=== PATIENT | female | born 1940 | race Caucasian/White ===

== ENCOUNTER 2018-04-10 06:00 | Day surgery (SDC) | payer MEDICARE, BC ==
[2018-04-09 11:29] VITALS: BMI 31.3
[2018-04-10] MEDS ORDERED: PROPOFOL 40 ML ONE (07:02)
[2018-04-10] MEDS ORDERED: Lidocaine 1% PF 5 ML VIAL ONE ×2 (08:05→14:40)
--- NOTE | 2018-04-10 11:29 | DIS ---
HISTORY: She was seen in the outpatient setting today to undergo a transesophageal echocardiogram fo r evaluation of the mitral valve in a patient who has what appeared to be mild to moderate mitral alessandro ve stenosis and could have been more severe and a transesophageal echocardiogram was advised prior to undergoing general anesthesia. She has had some problems with lower extremity edema, but has a norm al ejection fraction. She was advised to have the transesophageal echocardiogram performed in order to visualize more the mitral valve. Her other diagnoses include hypertension, lower extremity edema. She is status post bilateral greate r saphenous vein closure or ablation. She has had a hysterectomy. She has had some hypertension. S he has type 2 diabetes and mixed hyperlipidemia. DISCHARGE DIAGNOSES: Mild to moderate mitral valve stenosis which is noncritical. She should be a r easonable candidate to proceed with her surgery. She has type 2 diabetes and mixed hyperlipidemia. DISCHARGE MEDICATIONS: Same as her admission medications. Her discharge medications include oxybuty ignacio, metformin 500 mg 1 b.i.d., propranolol 40 mg 1 daily, vitamin E 400 mg 1 daily, aspirin 81 mg a day, vitamin D3 5000 units 1 daily, Amrix 15 mg extended release capsules 1 a day, pravastatin 20 mg a day, Zetia 10 mg a day, omeprazole 40 mg 1 a day, olmesartan 40 mg/hydrochlorothiazide 12.5 mg 1 da angella, clonazepam 0.5 mg tablets as needed, Lasix 20 mg 1 tablet as needed for lower extremity edema, a mlodipine 5 mg once a day, clonidine 0.1 mg daily. FOLLOWUP: Her followup will be with me in the office in about a month. PROCEDURES IN THE HOSPITAL: Included a transesophageal echocardiogram. HOSPITAL COURSE: As above, the patient presented for a transesophageal echocardiogram as noted above for the above indications. She did well for the procedure and overall impression was that she has m ild to moderate mitral valve stenosis. This is not critical. She should be a reasonable candidate t o proceed with her surgery upcoming without any significant contraindications at this time. In the f uture, she may need to undergo a mitral valvuloplasty, at this time does not appear to be an issue. I will discuss her case with further cardiothoracic surgeons or director global development that woul d perform mitral valvuloplasty. When she is fully awake and stable, she will be able to be discharge d home.
[2018-04-10] MEDS ORDERED: Glycopyrrolate 0.2 MG/ML 5 ML SYRINGE ONE (14:40)
[2018-04-10] MEDS ORDERED: PHENYLEPHRINE-NS 100 MCG/ML 10 ML SYRINGE ONE (14:40)
[2018-04-10] MEDS ORDERED: PROPOFOL 200 MG/20 ML VIAL ONE (14:40)
[2018-04-10] MEDS ORDERED: ePHEDrine/0.9% NaCl/PF SYRINGE 50 mg/10 ml ONE (14:40)
--- NOTE | 2018-04-10 15:04 | ECHO ---
TRANSESOPHAGEAL ECHOCARDIOGRAM: Date: 04/10/18 This is a 77-year-old female with a history of mitral valve stenosis of which was felt previously to be nonrheumatic. She is planned to undergo surgical procedures. She has had some lower extremity whitley a. Ejection fraction has remained normal. Transesophageal echocardiogram was performed to rule out ev idence of severe mitral valve stenosis. By transthoracic echocardiogram, it appeared to be mild to mo derate, but the posterior leaflet was not very well visualized. She was taken to recovery area where she underwent the procedure today. After giving after giving short-acting propofol for anesthesia, th e transesophageal probe was easily passed down the distal esophagus. IMPRESSION: 1. Mild to moderate mitral valve stenosis. Mitral valve area of 1.8 cm2. 2. Posterior mitral valve leaflet in fixed position, but appears to be immobile. 3. Trace aortic valve regurgitation, appears to be trileaflet with no evidence of stenosis on aortic valve. 4. Mild tricuspid valve regurgitation. 5. Mild to moderate mitral valve regurgitation. 6. No evidence of left atrial or left atrial appendage thrombus. 7. Ejection fraction 55-60%. 8. Moderate to severe left atrial dilatation with a left atrial dimension of 5.0-5.4 cm. 9. 3D images were obtained. There was a valve area by planimetry, as well as by pressure halftime, c alculated both ways to be about 1.8 cm2, compatible with mild to moderate mitral valve stenosis. There were no difficulties or complications were encountered.
== END 2018-04-10 10:31 | disposition home or self-care (01) ==
LOC: CCL 06:00
PROVIDERS: ATTEND Internal Medicine Cardiovascular Disease
PROC: B246ZZ4 Ultrasonography of Right and Left Heart, Transesophageal (ICD-10-PCS; principal; 2018-04-10)
DX: I34.2 Nonrheumatic mitral (valve) stenosis (principal); I10 Essential (primary) hypertension; E89.0 Postprocedural hypothyroidism; E78.2 Mixed hyperlipidemia; E11.9 Type 2 diabetes mellitus without complications; Z87.891 Personal history of nicotine dependence; Z79.84 Long term (current) use of oral hypoglycemic drugs; Z79.82 Long term (current) use of aspirin; Z79.899 Other long term (current) drug therapy
CPT/HCPCS: 93312; J2001; J2704

== ENCOUNTER 2018-05-25 10:13 | Outpatient (CLI) | payer MEDICARE, BC ==
--- NOTE | 2018-05-25 13:20 | MRI ---
MRI OF THE LUMBAR SPINE WITHOUT CONTRAST: Date: 05/25/18 COMPARISON: 01/17/17. HISTORY: Lumbar stenosis with claudication, back pain irradiating down bilateral lower extremities/bilateral l ower extremity radiculopathy. TECHNIQUE: Multiplanar, multisequence MR imaging of the lumbar spine obtained without contrast. FINDINGS: There is prominent levoscoliosis of the lumbar spine centered at the L3 level. There is no anterolisthesis or retrolisthesis noted within the lumbar spine. Assuming five lumbar-typ e vertebral bodies, the conus medullaris terminates at the T12-L1 level. T12-L1: There is disc space narrowing, disc desiccation, anterior osteophyte formation, and disc bulge. There is a new left paracentral/left foraminal disc protrusion. There is bilateral facet hypertrophy. Ther e is new moderate left lateral recess stenosis. There is mild left neural foraminal stenosis. L1-2: There is a new central/left paracentral disc herniation with mild superior migration and new signific ant left lateral recess stenosis. There is mild left neural foraminal stenosis. There is mild right n eural foraminal stenosis with bilateral facet hypertrophy present. L2-3: Prominent bilateral facet hypertrophy, right greater than left. There is disc space narrowing, disc d esiccation, and disc bulge present. Stable moderate right lateral recess stenosis. Severe right and m oderate left neural foraminal stenosis noted. L3-4: Prominent bilateral facet hypertrophy, right greater than left. There is disc space narrowing, disc d esiccation, and disc bulge with mild central canal stenosis, moderate right lateral recess stenosis, and moderate bilateral neural foraminal stenosis. L4-5: There is disc space narrowing, disc desiccation, and disc bulge. There is severe facet hypertrophy, l eft greater than right. There is mild central canal stenosis with moderate left lateral recess stenos is. Mild right and severe left neural foraminal stenosis. L5-S1: Disc space narrowing and disc desiccation. Bilateral facet hypertrophy. Mild bilateral neural foramin al stenosis, left greater than right. No significant central canal stenosis. Review of the retroperitoneal structures demonstrates two complex T2 hyperintense lesions emanating f rom the mid pole/lower pole of the left kidney measuring up to 1.6 cm. These lesions do not meet crit eria for simple cysts and may represent complex cysts or solid masses. CT of the abdomen with and wit hout contrast using a renal mass protocol is thus advised. IMPRESSION: 1. 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 2. Two complex lesions emanate from the left kidney, for which renal mass protocol CT examination is advised. CODE T. POS: [facility]
== END 2018-05-25 10:14 | disposition home or self-care (01) ==
LOC: TBSIIMAG 10:13
PROVIDERS: ATTEND Neurological Surgery
DX: M48.062 Spinal stenosis, lumbar region with neurogenic claudication (principal); M47.896 Other spondylosis, lumbar region; N28.9 Disorder of kidney and ureter, unspecified
CPT/HCPCS: 72148

== ENCOUNTER 2018-09-10 19:57 | Emergency (ER) | payer MEDICARE, BC ==
[2018-09-10] MEDS ORDERED: Ondansetron ODT 4 MG TAB ONE (20:12)
--- NOTE | 2018-09-10 22:23 | RAD ---
TWO VIEWS OF THE CHEST: 09/10/18 COMPARISON: None. HISTORY: Choking episode at home. FINDINGS: There is mild elevation of the left hemidiaphragm. There is atherosclerotic calcifications of the abd ominal aorta. There is mild increased linear interstitial density. There is no pneumothorax, pleural fluid, focal consolidation, or alveolar edema. IMPRESSION: No acute findings. POS: [facility]
== END 2018-09-10 23:27 | disposition home or self-care (01) ==
LOC: ERS 19:57
DX: R09.89 Other specified symptoms and signs involving the circulatory and respiratory systems (principal); R73.03 Prediabetes; E78.5 Hyperlipidemia, unspecified; I10 Essential (primary) hypertension; Z87.891 Personal history of nicotine dependence
CPT/HCPCS: 71046; 94640; J7620; Q0162

== ENCOUNTER 2021-05-11 12:17 | Inpatient (IN) | payer MEDICARE, BC ==
[2021-05-11] MEDS ORDERED: Acetaminophen 325 MG TAB PO PRN (13:30)
[2021-05-11] MEDS ORDERED: Ondansetron PF 4 MG/2 ML Vial SLOW IVP PRN (13:30)
[2021-05-11] MEDS ORDERED: Bisacodyl 5 MG TAB PO PRN (13:30)
[2021-05-11] MEDS ORDERED: Calcium Carbonate 500 MG ChewTAB PO PRN (13:30)
[2021-05-11] MEDS ORDERED: Milk Of Magnesia 30 ML UDCUP PO PRN (13:30)
[2021-05-11] MEDS ORDERED: Dextrose 50% Abboject 50 ML SYRINGE SLOW IVP PRN (13:58)
[2021-05-11] MEDS ORDERED: Dextrose 5% in Water 1,000 ML IV PRN (13:58)
[2021-05-11] MEDS ORDERED: HumaLOG 300 UNITS/3 ML VIAL SC PRN (13:58)
[2021-05-11] MEDS ORDERED: Furosemide 40 MG/4 ML VIAL SLOW IVP SCH (14:00)
[2021-05-11 14:56] LABS: #Eosinphils 0.1 thou/uL (0.0-0.7); #Lymphocytes 1.4 thou/uL (1.20-3.40); #Monocytes 0.6 thou/uL (0.11-0.59); %Basophils 0.6 % (0.0-1.0); %Eosinophils 2.5 % (0.0-10.0); %Lymphocytes 26.6 % (21.0-51.0); %Monocytes 11.3 % (0.0-10.0); %Neutrophils 58.9 % (42.0-75.0); Hemoglobin 10.7 g/dL (12.0-16.0); Mean Corpuscular HGB CONC 31.5 g/dL (32.0-36.0); Mean Corpuscular Hemoglobin 32.3 pg (27.0-31.0); Mean Platelet Volume 7.6 fL (7.4-10.4); Platelet Count 236 thou/uL (130-400); RBC Distribution Width 12.1 % (11.5-14.5); Red Blood Cell (RBC) Count 3.31 mill/uL (4.20-5.40); White Blood Cell (WBC) Count 5.1 thou/uL (4.8-10.8)
[2021-05-11 15:23] LABS: ALT (SGPT) 7 U/L (8-55); AST (SGOT) 9 U/L (5-34); Albumin 3.9 g/dL (3.4-4.8); Alkaline Phosphatase 45 U/L (40-110); Anion Gap 15 mmol/L (10-20); BUN (Urea Nitrogen) 31 mg/dL (9.8-20.1); Bilirubin, Total 0.8 mg/dL (0.2-1.2); Calc. Creatinine Clearance 11 mL/min (70-130); Calcium 9.4 mg/dL (7.8-10.44); Carbon Dioxide 23 mmol/L (23-31); Chloride 104 mmol/L (98-107); Globulin 3.1 g/dL (2.4-3.5); Glucose 114 mg/dL (83-110); Potassium 4.1 mmol/L (3.5-5.1); Sodium 138 mmol/L (136-145)
[2021-05-11] MEDS: Diltiazem 125 MG in Sodium Chloride 0.9% 100 ML IVPB SCH (15:31)
[2021-05-11] MEDS ORDERED: metFORMIN 500 MG TAB PO SCH (17:00)
[2021-05-11 19:56] LABS: Bacteria/HPF 3+ HPF (None Seen); Bilirubin Negative (Negative); Blood, Urine Negative (Negative); Clarity Clear (Clear); Glucose, Urine (Dipstick) Normal (Negative); Ketone, Urine Negative (Negative); Leukocyte Negative Leu/uL (Negative); Nitrite Negative (Negative); Protein, Urine (Dipstick) Negative (Neg-Trace); RBC/HPF 0-3 HPF (0-3); Specific Gravity, Urine 1.011 (1.002-1.036); Squamous Epithelial 0-3 HPF (0-3); Urobilinogen Normal mg/dL (Less than 2); WBC/HPF 0-3 HPF (0-3)
[2021-05-11] MEDS: hydrALAZINE 25 MG TAB PO SCH (21:00)
[2021-05-11] MEDS: Famotidine 20 MG TAB PO SCH (21:00)
[2021-05-11] MEDS: Cyclobenzaprine 10 MG TAB PO SCH (21:00)
[2021-05-11] MEDS: Oxybutynin 5 MG TAB PO SCH (21:00)
[2021-05-12 05:18] LABS: #Eosinphils 0.3 thou/uL (0.0-0.7); #Lymphocytes 1.9 thou/uL (1.20-3.40); #Monocytes 0.7 thou/uL (0.11-0.59); #Neutrophils 2.7 thou/uL (1.40-6.50); %Basophils 0.6 % (0.0-1.0); %Eosinophils 5.3 % (0.0-10.0); %Lymphocytes 33.6 % (21.0-51.0); %Monocytes 11.7 % (0.0-10.0); %Neutrophils 48.8 % (42.0-75.0); Hemoglobin 10.6 g/dL (12.0-16.0); Mean Corpuscular HGB CONC 32.4 g/dL (32.0-36.0); Mean Platelet Volume 7.8 fL (7.4-10.4); Platelet Count 227 thou/uL (130-400); RBC Distribution Width 12.1 % (11.5-14.5); Red Blood Cell (RBC) Count 3.21 mill/uL (4.20-5.40); White Blood Cell (WBC) Count 5.6 thou/uL (4.8-10.8)
[2021-05-12 05:40] LABS: Anion Gap 15 mmol/L (10-20); BUN (Urea Nitrogen) 31 mg/dL (9.8-20.1); Calc. Creatinine Clearance 25 mL/min (70-130); Carbon Dioxide 26 mmol/L (23-31); Chloride 103 mmol/L (98-107); Glucose 99 mg/dL (83-110); Sodium 140 mmol/L (136-145)
[2021-05-12] MEDS: Furosemide 40 MG/4 ML VIAL SLOW IVP SCH (08:32)
[2021-05-12] MEDS: Diltiazem 125 MG in Sodium Chloride 0.9% 100 ML IVPB SCH (08:32)
[2021-05-12] MEDS: Aspirin 81 mg Enteric Coated Tablet PO SCH (08:32)
[2021-05-12] MEDS: Hydrochlorothiazide 25 MG TAB PO SCH (08:32)
[2021-05-12] MEDS: cloNIDine 0.1 MG TAB PO SCH (08:32)
[2021-05-12] MEDS: Cholecalciferol 1,000 UNITS (25 MCG) TAB PO SCH (08:33)
[2021-05-12] MEDS: hydrALAZINE 25 MG TAB PO SCH ×2 (08:33→20:25)
[2021-05-12] MEDS: Cyclobenzaprine 10 MG TAB PO SCH ×2 (08:33→20:25)
[2021-05-12] MEDS: Famotidine 20 MG TAB PO SCH (08:33)
[2021-05-12] MEDS: Oxybutynin 5 MG TAB PO SCH ×2 (08:34→20:25)
[2021-05-12] MEDS: Vitamin E 400 UNITS CAP PO SCH (08:34)
[2021-05-12] MEDS: Gabapentin 300 MG CAP PO SCH (08:34)
[2021-05-12] MEDS: Ezetimibe 10 MG TAB PO SCH (08:36)
[2021-05-12] MEDS: Apixaban 2.5 MG TAB PO SCH ×2 (08:42→20:28)
[2021-05-12] MEDS ORDERED: Losartan 25 MG TAB PO SCH (09:00)
[2021-05-12] MEDS ORDERED: Diltiazem HCl SR 60 mg Capsule PO SCH (09:00)
[2021-05-12 17:44] LABS: SARS-CoV-2 PCR by NAA Not Detected (NotDetected)
[2021-05-13 05:24] LABS: #Eosinphils 0.4 thou/uL (0.0-0.7); #Lymphocytes 1.7 thou/uL (1.20-3.40); #Neutrophils 5.9 thou/uL (1.40-6.50); %Basophils 0.5 % (0.0-1.0); %Eosinophils 3.9 % (0.0-10.0); %Lymphocytes 19.3 % (21.0-51.0); %Monocytes 10.8 % (0.0-10.0); %Neutrophils 65.4 % (42.0-75.0); Hemoglobin 11.8 g/dL (12.0-16.0); Mean Corpuscular HGB CONC 30.9 g/dL (32.0-36.0); Mean Corpuscular Hemoglobin 31.5 pg (27.0-31.0); Platelet Count 263 thou/uL (130-400); RBC Distribution Width 12.2 % (11.5-14.5); Red Blood Cell (RBC) Count 3.74 mill/uL (4.20-5.40)
[2021-05-13 05:44] LABS: Anion Gap 16 mmol/L (10-20); BUN (Urea Nitrogen) 33 mg/dL (9.8-20.1); Calc. Creatinine Clearance 23 mL/min (70-130); Calcium 8.7 mg/dL (7.8-10.44); Carbon Dioxide 25 mmol/L (23-31); Chloride 100 mmol/L (98-107); Glucose 135 mg/dL (83-110); Sodium 137 mmol/L (136-145)
[2021-05-13 08:09] LABS: Magnesium 1.3 mg/dL (1.6-2.6)
[2021-05-13] MEDS: Gabapentin 300 MG CAP PO SCH (08:09)
[2021-05-13] MEDS: Cyclobenzaprine 10 MG TAB PO SCH (08:09)
[2021-05-13] MEDS: hydrALAZINE 25 MG TAB PO SCH (08:09)
[2021-05-13] MEDS: Aspirin 81 mg Enteric Coated Tablet PO SCH (08:10)
[2021-05-13] MEDS: Vitamin E 400 UNITS CAP PO SCH (08:10)
[2021-05-13] MEDS: Cholecalciferol 1,000 UNITS (25 MCG) TAB PO SCH (08:10)
[2021-05-13] MEDS: Hydrochlorothiazide 25 MG TAB PO SCH (08:10)
[2021-05-13] MEDS: Oxybutynin 5 MG TAB PO SCH (08:10)
[2021-05-13] MEDS: cloNIDine 0.1 MG TAB PO SCH (08:10)
[2021-05-13] MEDS ORDERED: Furosemide 40 MG/4 ML VIAL ONE (08:11)
[2021-05-13] MEDS: Ezetimibe 10 MG TAB PO SCH (08:11)
[2021-05-13] MEDS: Apixaban 2.5 MG TAB PO SCH ×2 (08:11→21:09)
[2021-05-13] MEDS: Furosemide 40 MG/4 ML VIAL SLOW IVP SCH (08:14)
[2021-05-13] MEDS ORDERED: Magnesium 2 GM/50 ML 2 GM in Premix Bag 1 BAG IVPB SCH (08:30)
[2021-05-13] MEDS: Diltiazem 125 MG in Sodium Chloride 0.9% 100 ML IVPB SCH (08:33)
[2021-05-13] MEDS ORDERED: Famotidine 20 MG TAB PO SCH (09:00)
[2021-05-13 17:44] LABS: Anion Gap 15 mmol/L (10-20); BUN (Urea Nitrogen) 31 mg/dL (9.8-20.1); Calc. Creatinine Clearance 23 mL/min (70-130); Calcium 9.3 mg/dL (7.8-10.44); Carbon Dioxide 28 mmol/L (23-31); Chloride 99 mmol/L (98-107); Glucose 126 mg/dL (83-110); Potassium 3.9 mmol/L (3.5-5.1); Sodium 138 mmol/L (136-145)
[2021-05-13 18:10] LABS: Thyroid Stimulating Hormone 2.1681 uIU/mL (0.35-4.94)
[2021-05-13] MEDS ORDERED: Digoxin 0.5 MG/2 ML AMP SLOW IVP SCH (19:15)
[2021-05-13] MEDS: Digoxin 0.5 MG/2 ML AMP SLOW IVP SCH (22:20)
[2021-05-14] MEDS ORDERED: Digoxin 0.5 MG/2 ML AMP SLOW IVP SCH (02:00)
[2021-05-14] MEDS: traMADol HCl 50 MG TAB PO PRN (02:25)
[2021-05-14] MEDS: Digoxin 0.5 MG/2 ML AMP SLOW IVP SCH ×3 (03:32→15:13)
[2021-05-14 04:49] LABS: #Eosinphils 0.4 thou/uL (0.0-0.7); #Lymphocytes 1.3 thou/uL (1.20-3.40); #Neutrophils 5.4 thou/uL (1.40-6.50); %Basophils 0.3 % (0.0-1.0); %Eosinophils 5.3 % (0.0-10.0); %Lymphocytes 15.7 % (21.0-51.0); %Monocytes 12.2 % (0.0-10.0); %Neutrophils 66.5 % (42.0-75.0); Hemoglobin 12.2 g/dL (12.0-16.0); Mean Corpuscular HGB CONC 32.1 g/dL (32.0-36.0); Mean Platelet Volume 8.4 fL (7.4-10.4); Platelet Count 254 thou/uL (130-400); RBC Distribution Width 12.1 % (11.5-14.5); White Blood Cell (WBC) Count 8.2 thou/uL (4.8-10.8)
[2021-05-14 05:11] LABS: Anion Gap 14 mmol/L (10-20); BUN (Urea Nitrogen) 28 mg/dL (9.8-20.1); Calc. Creatinine Clearance 25 mL/min (70-130); Calcium 9.5 mg/dL (7.8-10.44); Carbon Dioxide 28 mmol/L (23-31); Chloride 99 mmol/L (98-107); Glucose 133 mg/dL (83-110); Potassium 3.8 mmol/L (3.5-5.1); Sodium 137 mmol/L (136-145)
[2021-05-14 05:12] LABS: Magnesium 1.7 mg/dL (1.6-2.6)
[2021-05-14] MEDS: Apixaban 2.5 MG TAB PO SCH ×2 (08:48→20:30)
[2021-05-14] MEDS: Digoxin 0.125 MG TAB PO SCH (08:48)
[2021-05-14] MEDS: cloNIDine 0.1 MG TAB PO SCH (08:48)
[2021-05-14] MEDS: Cholecalciferol 1,000 UNITS (25 MCG) TAB PO SCH (08:48)
[2021-05-14] MEDS: Furosemide 40 MG TAB PO SCH (08:49)
[2021-05-14] MEDS: Ezetimibe 10 MG TAB PO SCH (08:49)
[2021-05-14] MEDS ORDERED: Magnesium 2 GM/50 ML 2 GM in Premix Bag 1 BAG IVPB SCH (09:15)
[2021-05-14] MEDS ORDERED: Cyanocobalamin (Vitamin B-12) 1,000 MCG TAB PO SCH (09:15)
[2021-05-14] MEDS ORDERED: Folic Acid 1 MG TAB PO SCH (09:15)
[2021-05-14] MEDS ORDERED: Multivit, Therapeutic 1 TAB PO SCH (09:15)
[2021-05-14] MEDS ORDERED: Lidocaine 1% PF 5 ML VIAL ONE (12:20)
[2021-05-14] MEDS ORDERED: PROPOFOL 200 MG/20 ML VIAL ONE (12:20)
[2021-05-14] MEDS ORDERED: cloNIDine 0.1 MG TAB PO PRN (19:30)
[2021-05-14] MEDS: Folic Acid 1 MG TAB PO SCH (20:30)
[2021-05-14] MEDS: Melatonin 3 MG TAB PO PRN (21:50)
[2021-05-15 04:32] LABS: #Eosinphils 0.3 thou/uL (0.0-0.7); #Lymphocytes 1.8 thou/uL (1.20-3.40); #Monocytes 1.4 thou/uL (0.11-0.59); #Neutrophils 6.8 thou/uL (1.40-6.50); %Basophils 0.1 % (0.0-1.0); %Eosinophils 3.3 % (0.0-10.0); %Lymphocytes 17.4 % (21.0-51.0); %Monocytes 13.4 % (0.0-10.0); %Neutrophils 65.8 % (42.0-75.0); Hemoglobin 13.4 g/dL (12.0-16.0); Mean Corpuscular HGB CONC 30.8 g/dL (32.0-36.0); Mean Corpuscular Hemoglobin 31.4 pg (27.0-31.0); Mean Platelet Volume 8.4 fL (7.4-10.4); Platelet Count 222 thou/uL (130-400); RBC Distribution Width 11.8 % (11.5-14.5); Red Blood Cell (RBC) Count 4.27 mill/uL (4.20-5.40); White Blood Cell (WBC) Count 10.4 thou/uL (4.8-10.8)
[2021-05-15 04:48] LABS: Anion Gap 12 mmol/L (10-20); BUN (Urea Nitrogen) 29 mg/dL (9.8-20.1); Calc. Creatinine Clearance 26 mL/min (70-130); Calcium 9.4 mg/dL (7.8-10.44); Carbon Dioxide 29 mmol/L (23-31); Chloride 98 mmol/L (98-107); Glucose 108 mg/dL (83-110); Magnesium 1.8 mg/dL (1.6-2.6); Potassium 3.7 mmol/L (3.5-5.1); Sodium 135 mmol/L (136-145)
[2021-05-15] MEDS ORDERED: Potassium Chloride 20 MEQ TAB PO SCH (09:45)
[2021-05-15] MEDS ORDERED: Magnesium Sulfate 2 GM in Sodium Chloride 0.9% 100 ML IVPB SCH (09:45)
[2021-05-15] MEDS: Digoxin 0.125 MG TAB PO SCH (09:47)
[2021-05-15] MEDS: Ezetimibe 10 MG TAB PO SCH (09:47)
[2021-05-15] MEDS: cloNIDine 0.1 MG TAB PO SCH (09:47)
[2021-05-15] MEDS: Furosemide 40 MG TAB PO SCH (09:48)
[2021-05-15] MEDS: Folic Acid 1 MG TAB PO SCH ×2 (09:48→20:43)
[2021-05-15] MEDS: Apixaban 2.5 MG TAB PO SCH ×2 (09:48→20:43)
[2021-05-15] MEDS: Cyanocobalamin (Vitamin B-12) 1,000 MCG TAB PO SCH (09:48)
[2021-05-15] MEDS: Multivit, Therapeutic 1 TAB PO SCH (09:48)
[2021-05-15] MEDS ORDERED: Magnesium 2 GM/50 ML 2 GM in Premix Bag 1 BAG IVPB SCH (10:00)
[2021-05-15] MEDS: Cholecalciferol 1,000 UNITS (25 MCG) TAB PO SCH (10:09)
[2021-05-15] MEDS ORDERED: Polyethylene Glycol 3350 17 GM Packet PO PRN (11:37)
[2021-05-15] MEDS ORDERED: Polyethylene Glycol 3350 17 GM Packet PO SCH (11:45)
[2021-05-15] MEDS: traMADol HCl 50 MG TAB PO PRN (12:28)
[2021-05-15] MEDS: Senokot S 8.6-50 MG TAB PO SCH (20:43)
[2021-05-15] MEDS: Melatonin 3 MG TAB PO PRN (20:43)
[2021-05-15] MEDS ORDERED: Senokot S 8.6-50 MG TAB PO SCH (21:00)
[2021-05-16 05:28] LABS: #Eosinphils 0.4 thou/uL (0.0-0.7); #Lymphocytes 1.8 thou/uL (1.20-3.40); #Monocytes 1.2 thou/uL (0.11-0.59); #Neutrophils 5.6 thou/uL (1.40-6.50); %Basophils 0.2 % (0.0-1.0); %Eosinophils 4.2 % (0.0-10.0); %Lymphocytes 19.7 % (21.0-51.0); %Monocytes 13.4 % (0.0-10.0); %Neutrophils 62.5 % (42.0-75.0); Hemoglobin 12.1 g/dL (12.0-16.0); Mean Corpuscular Hemoglobin 31.6 pg (27.0-31.0); Mean Platelet Volume 8.4 fL (7.4-10.4); Platelet Count 261 thou/uL (130-400); RBC Distribution Width 11.7 % (11.5-14.5); Red Blood Cell (RBC) Count 3.84 mill/uL (4.20-5.40)
[2021-05-16 06:07] LABS: Anion Gap 13 mmol/L (10-20); BUN (Urea Nitrogen) 29 mg/dL (9.8-20.1); Calc. Creatinine Clearance 27 mL/min (70-130); Calcium 9.3 mg/dL (7.8-10.44); Carbon Dioxide 30 mmol/L (23-31); Chloride 97 mmol/L (98-107); Glucose 111 mg/dL (83-110); Magnesium 1.7 mg/dL (1.6-2.6); Potassium 3.9 mmol/L (3.5-5.1); Sodium 136 mmol/L (136-145)
[2021-05-16] MEDS ORDERED: Electrolyte Replacement Protocol 1 EACH FS SCH (08:15)
[2021-05-16] MEDS ORDERED: Magnesium Sulfate 2 GM in Sodium Chloride 0.9% 100 ML IVPB SCH (08:15)
[2021-05-16] MEDS ORDERED: Magnesium 2 GM/50 ML 2 GM in Premix Bag 1 BAG IVPB SCH (09:00)
[2021-05-16] MEDS: Furosemide 40 MG TAB PO SCH (09:14)
[2021-05-16] MEDS: Cyanocobalamin (Vitamin B-12) 1,000 MCG TAB PO SCH (09:15)
[2021-05-16] MEDS: Senokot S 8.6-50 MG TAB PO SCH ×2 (09:16→21:02)
[2021-05-16] MEDS: Multivit, Therapeutic 1 TAB PO SCH (09:17)
[2021-05-16] MEDS: Ezetimibe 10 MG TAB PO SCH (09:17)
[2021-05-16] MEDS: Folic Acid 1 MG TAB PO SCH ×2 (09:17→21:02)
[2021-05-16] MEDS: cloNIDine 0.1 MG TAB PO SCH (09:18)
[2021-05-16] MEDS: Apixaban 2.5 MG TAB PO SCH ×2 (09:19→21:02)
[2021-05-16] MEDS: Cholecalciferol 1,000 UNITS (25 MCG) TAB PO SCH (09:25)
[2021-05-16] MEDS ORDERED: Bisacodyl 10 MG SUPP PR SCH (09:30)
[2021-05-16] MEDS ORDERED: Polyethylene Glycol 3350 17 GM Packet PO SCH (09:30)
[2021-05-16] MEDS: traMADol HCl 50 MG TAB PO PRN (10:59)
[2021-05-17 05:25] LABS: Anion Gap 15 mmol/L (10-20); BUN (Urea Nitrogen) 28 mg/dL (9.8-20.1); Calc. Creatinine Clearance 26 mL/min (70-130); Calcium 9.3 mg/dL (7.8-10.44); Carbon Dioxide 29 mmol/L (23-31); Chloride 95 mmol/L (98-107); Glucose 100 mg/dL (83-110); Magnesium 2.3 mg/dL (1.6-2.6); Potassium 4.6 mmol/L (3.5-5.1); Sodium 134 mmol/L (136-145)
[2021-05-17] MEDS: Cyanocobalamin (Vitamin B-12) 1,000 MCG TAB PO SCH (13:39)
[2021-05-17] MEDS: cloNIDine 0.1 MG TAB PO SCH (13:40)
[2021-05-17] MEDS: Multivit, Therapeutic 1 TAB PO SCH (13:40)
[2021-05-17] MEDS: Ezetimibe 10 MG TAB PO SCH (13:40)
[2021-05-17] MEDS: Apixaban 2.5 MG TAB PO SCH ×2 (13:40→20:48)
[2021-05-17] MEDS: Senokot S 8.6-50 MG TAB PO SCH ×2 (13:40→20:48)
[2021-05-17] MEDS: Folic Acid 1 MG TAB PO SCH ×2 (13:40→20:48)
[2021-05-17] MEDS: Furosemide 40 MG TAB PO SCH (13:41)
[2021-05-17] MEDS: Polyethylene Glycol 3350 17 GM Packet PO SCH (13:41)
[2021-05-17] MEDS: Cholecalciferol 1,000 UNITS (25 MCG) TAB PO SCH (14:39)
[2021-05-17 15:33] VITALS: BMI 26.3
[2021-05-18 05:28] LABS: Anion Gap 14 mmol/L (10-20); BUN (Urea Nitrogen) 31 mg/dL (9.8-20.1); Band 1 % (5-11); Calc. Creatinine Clearance 24 mL/min (70-130); Calcium 9.7 mg/dL (7.8-10.44); Carbon Dioxide 27 mmol/L (23-31); Chloride 97 mmol/L (98-107); Eosinophils 4 % (0-10); Glucose 110 mg/dL (83-110); Hemoglobin 12.9 g/dL (12.0-16.0); Lymphocytes 17 % (21-51); MDiff Complete? YES; Mean Corpuscular HGB CONC 33.5 g/dL (32.0-36.0); Mean Corpuscular Hemoglobin 33.5 pg (27.0-31.0); Mean Corpuscular Volume 99.9 fL (78.0-98.0); Mean Platelet Volume 8.1 fL (7.4-10.4); Monocytes 9 % (0-10); Neutrophil 69 % (42-75); Platelet Count 320 thou/uL (130-400); Platelet Morphology Comment Appears Adequate; Potassium 4.3 mmol/L (3.5-5.1); RBC Distribution Width 11.6 % (11.5-14.5); RBC Morphology Normal; Red Blood Cell (RBC) Count 3.85 mill/uL (4.20-5.40); Sodium 134 mmol/L (136-145); White Blood Cell (WBC) Count 9.1 thou/uL (4.8-10.8)
[2021-05-18] MEDS: Senokot S 8.6-50 MG TAB PO SCH ×2 (09:53→20:05)
[2021-05-18] MEDS: cloNIDine 0.1 MG TAB PO SCH (09:53)
[2021-05-18] MEDS: Ezetimibe 10 MG TAB PO SCH (09:53)
[2021-05-18] MEDS: Folic Acid 1 MG TAB PO SCH ×2 (09:54→20:05)
[2021-05-18] MEDS: Apixaban 2.5 MG TAB PO SCH ×2 (09:54→20:05)
[2021-05-18] MEDS: Multivit, Therapeutic 1 TAB PO SCH (09:54)
[2021-05-18] MEDS: Cyanocobalamin (Vitamin B-12) 1,000 MCG TAB PO SCH (09:54)
[2021-05-18] MEDS: Furosemide 40 MG TAB PO SCH (09:54)
[2021-05-18] MEDS: Cholecalciferol 1,000 UNITS (25 MCG) TAB PO SCH (09:55)
[2021-05-18] MEDS: Polyethylene Glycol 3350 17 GM Packet PO SCH (09:55)
[2021-05-18] MEDS: traMADol HCl 50 MG TAB PO PRN (16:26)
[2021-05-18 20:42] VITALS: BP 149/70; TEMP 97.2
== END 2021-05-18 20:17 | DRG 308 ==
LOC: 2SW 12:17 → OBSVTOIN 05-13 11:54 → 2NO 05-13 18:50
PROVIDERS: ADMIT Internal Medicine; ATTEND Internal Medicine
PROC: 0T9B70Z Drainage of Bladder with Drainage Device, Via Natural or Artificial Opening (ICD-10-PCS; 2021-05-14)
PROC: B24BZZ4 Ultrasonography of Heart with Aorta, Transesophageal (ICD-10-PCS; principal; 2021-05-15)
PROC: 5A2204Z Restoration of Cardiac Rhythm, Single (ICD-10-PCS; 2021-05-15)
DX: I48.91 Unspecified atrial fibrillation (principal); J96.01 Acute respiratory failure with hypoxia; I50.33 Acute on chronic diastolic (congestive) heart failure; G93.41 Metabolic encephalopathy; I13.0 Hypertensive heart and chronic kidney disease with heart failure and stage 1 through stage 4 chronic kidney disease, or unspecified chronic kidney disease; N18.4 Chronic kidney disease, stage 4 (severe); E87.1 Hypo-osmolality and hyponatremia; R44.3 Hallucinations, unspecified; E78.2 Mixed hyperlipidemia; R33.9 Retention of urine, unspecified; R53.81 Other malaise; Z96.659 Presence of unspecified artificial knee joint; E11.22 Type 2 diabetes mellitus with diabetic chronic kidney disease; I08.1 Rheumatic disorders of both mitral and tricuspid valves; Z20.822 Contact with and (suspected) exposure to COVID-19; D53.9 Nutritional anemia, unspecified; E87.6 Hypokalemia; E83.42 Hypomagnesemia; E53.8 Deficiency of other specified B group vitamins; Z98.49 Cataract extraction status, unspecified eye; Z90.10 Acquired absence of unspecified breast and nipple; Z90.89 Acquired absence of other organs; Z98.51 Tubal ligation status; Z90.49 Acquired absence of other specified parts of digestive tract; Z90.710 Acquired absence of both cervix and uterus; Z79.82 Long term (current) use of aspirin; Z79.01 Long term (current) use of anticoagulants; Z79.899 Other long term (current) drug therapy
CPT/HCPCS: 36415; 36416; 70450; 71046; 80048; 80053; 81001; 82607; 82746; 83735; 84443; 85025; 87086; 92960; 93312; J1160; J1940; J2704; J3475; J3490; U0003; U0005